=== PATIENT | male | born 1980 | race African-American/Black ===

== ENCOUNTER 2021-03-11 17:07 | Emergency (ER) | payer MEDICAID, SELFPAY ==
[2021-03-11 17:28] VITALS: BP 127/87; PULSE 72; RESP 12; TEMP 36.7; O2SAT 98
[2021-03-11 17:46] VITALS: PULSE 72; RESP 12
--- NOTE | 2021-03-11 17:48 | ED.GENADULT ---
HPI - General Adult General Chief complaint: Overdose Stated complaint: Fentanyl Injestion to Avoid Police Time Seen by Provider: 03/11/21 17:33 Source: patient, EMS and RN notes reviewed Mode of arrival: EMS Limitations: no limitations History of Present Illness HPI narrative: Patient is a 40-year-old -[place] male brought to the emergency room by ambulance because of fentanyl overdose. Patient normally takes 3 to 4 tablets of fentanyl a day, patient took 7 tablets of fentanyl of unknown dose before got arrested by the police.. 2 hours ago. 1 hour later patient felt dizzy then released from custody to the emergency room. Currently patient is awake, alert and oriented x4, denies any nausea, vomiting, headache, abdominal pain, chest pain, shortness of breath, vision abnormalities, dizziness, lightheadedness or any other symptoms. Patient feels normal without any symptoms and would like to go home AGAINST MEDICAL ADVICE. Related Data Allergies Allergy/AdvReac Type Severity Reaction Status Date / Time No Known Allergies Allergy Verified 03/11/21 17:52 Review of Systems Review of Systems: CONSTITUTIONAL: Denies fever, chills, or sweats. EYES: Denies visual changes, redness, or discharge. ENT: Denies rhinorrhea, congestion, sore throat, or otalgia. CARDIOVASCULAR: Denies chest pain, palpitations, or edema. RESPIRATORY: Denies cough or dyspnea. GASTROINTESTINAL: Denies abdominal pain, nausea, vomiting, or diarrhea. GENITOURINARY: Denies dysuria or hematuria. SKIN: Denies rash or itching. MUSCULOSKELETAL: Denies back pain, joint pain, or myalgia. NEUROLOGIC: Denies headache, numbness, or weakness. PSYCHIATRIC: Denies anxiety or depression. Exam Narrative: General appearance: Well-developed, well-nourished Skin: Normal color Head: Normocephalic, nontraumatic Eyes: Clear conjunctiva ENT: Oropharynx normal, ears normal, nose normal Neck: Supple, nontender Chest and respiratory: Airway patent, no respiratory distress, no accessory muscle use Heart: Regular rate/rhythm Abdomen: Soft, nontender, no organomegaly, quiet bowel sounds Vascular: Normal peripheral pulses, normal capillary refill. Musculoskeletal: Normal range of motion, nontender back Neurologic: Alert and oriented ?3, CLINICAL ADMINISTRATIVE COORDINATOR is normal as tested, no gross motor deficit Course Course Emergency Course: Improved Vital Signs Vital signs: Vital Signs Temperature 36.7 C 03/11/21 17:28 Pulse Rate 72 03/11/21 17:28 Respiratory Rate 12 03/11/21 17:28 Blood Pressure 127/87 03/11/21 17:28 Pulse Oximetry 98 03/11/21 17:28 Temperature 36.7 C 03/11/21 17:28 Pulse Rate 72 03/11/21 17:46 Respiratory Rate 12 03/11/21 17:28 Blood Pressure 127/87 03/11/21 17:28 Pulse Oximetry 98 03/11/21 17:28 Medical Decision Making MDM Narrative Medical decision making narrative: Patient took 7 pills of fentanyl, of unknown dose, was concerned about to get caught by the police with fentanyl in his pocket. Currently patient is asymptomatic, would like to go home patient left AGAINST MEDICAL ADVICE.. Patient was able to get out of bed and walk in the emergency room without any quality control assistant or dizziness. Differential Diagnosis Differential Diagnosis: Fentanyl overdose Vital Signs Vital Signs: Vital Signs Temperature 36.7 C 03/11/21 17:28 Pulse Rate 72 03/11/21 17:28 Respiratory Rate 12 03/11/21 17:28 Blood Pressure 127/87 03/11/21 17:28 Pulse Oximetry 98 03/11/21 17:28 Temperature 36.7 C 03/11/21 17:28 Pulse Rate 72 03/11/21 17:46 Respiratory Rate 12 03/11/21 17:28 Blood Pressure 127/87 03/11/21 17:28 Pulse Oximetry 98 03/11/21 17:28 C
[2021-03-11 17:49] VITALS: BP 127/80; PULSE 75; RESP 12; O2SAT 100
[2021-03-11 17:50] VITALS: O2SAT 100
--- NOTE | 2021-03-11 17:51 | PC.NURSE ---
pt refusing tx. wants to leave. ed phys aware. ed phys wants pt to have narcan prior to leaving. pt refusing narcan
[2021-03-11 18:26] VITALS: BP 121/73; PULSE 74; RESP 12; O2SAT 99
== END 2021-03-11 18:27 | disposition left against medical advice (07) ==
PROVIDERS: Emergency Provider Emergency Medicine
DX: T40.411A Poisoning by fentanyl or fentanyl analogs, accidental (unintentional), initial encounter (principal)
CPT/HCPCS: 99281

== ENCOUNTER 2022-10-11 16:10 | Emergency (ER) | payer MEDICAID, SELFPAY ==
[2022-10-11] VITALS (7 sets, daily range): BP systolic 122–124; BP diastolic 70–94; PULSE 53–91; RESP 9–14; TEMP 36.5–36.7; O2SAT 99–100
--- NOTE | ~2022-10-11 | XR_ITS ---
EXAMINATION: XR chest 1V portable Exam Date/Time: 10/11/2022 17:34 CDT HISTORY: wheezing Comparison: None. RESULT: Lines, tubes, and devices: None. Lungs and pleura: Patient is rotated towards the right. Slightly low volumes with crowding. Streaky b ibasilar atelectasis. Cardiomediastinal silhouette: Stable. Other: No acute osseous or upper abdominal finding. IMPRESSION: No acute cardiopulmonary process. Reviewed, dictated and finalized at location K.
[2022-10-11] MEDS: ONDANSETRON HCL ODT 4 MG TABLET PO (17:35)
[2022-10-11] MEDS: IPRATROPIUM BR 0.02% INH SOLN 0.5 MG/2.5 ML VIAL INHALATION (17:38)
[2022-10-11] MEDS: ALBUTEROL SULFATE NEB 2.5 MG/3 ML INH INHALATION (17:38)
--- NOTE | 2022-10-11 19:46 | ED.GENADULT ---
HPI - General Adult General Chief complaint: Unspecified Stated complaint: nausea Time Seen by Provider: 10/11/22 17:14 History of Present Illness HPI narrative: Patient is a 42-year-old male who presents ER from police custody with nausea. Patient was found sleeping in his car. He reports he used 3-4 button some fentanyl. He thought they were weaker than his typical 1 but no day habit so he took multiple. There is no attempt to end his own life. He has had no hypoxia. Related Data Allergies Allergy/AdvReac Type Severity Reaction Status Date / Time No Known Allergies Allergy Verified 03/11/21 17:52 Review of Systems Review of Systems: All systems reviewed & are unremarkable except as noted in HPI and below Constitutional: Constitutional: Denies chills and Denies fever(s) Cardiovascular: Cardiovascular: Denies chest pain and Denies radiating jaw, neck or arm pain Respiratory: Respiratory: Denies cough, Denies dyspnea and Reports wheezing Gastrointestinal: Gastrointestinal: Denies abdominal pain, Denies diarrhea, Reports nausea and Denies vomiting PMF Past Medical History Medical History (Updated 10/11/22 @ 20:28 by Booker Strauss MD) Healthy adult male Surgical History Surgical History (Updated 10/11/22 @ 20:28 by Booker Strauss MD) No history of previous surgery Exam Narrative: GENERAL: Well-appearing, well-nourished, and in no acute distress. HEAD: Normocephalic, atraumatic. EYES: PERRL and EOMI. ENT: Mucous membranes moist. CHEST: Scattered expiratory wheezing.. No respiratory distress. HEART: Regular rate and rhythm. Normal peripheral pulses. ABDOMEN: Soft, nontender, nondistended. EXTREMITIES: Normal range of motion. No edema. SKIN: Warm, dry, no rash. NEURO: Alert and oriented x3. PSYCH: Normal mood and affect. Course Course Emergency Course: Patient awake alert and oriented x3. He is a bit sleepy but when he walks in the room he wakes up immediately and converses appropriately. He has been able to eat and drink. He reports that his girlfriend works at 10 PM and he is ready to leave. She is on her way to pick him up. Vital Signs Vital signs: Vital Signs Temperature 97.7 F 10/11/22 16:12 Pulse Rate 91 10/11/22 16:12 Respiratory Rate 14 10/11/22 16:12 Blood Pressure 123/70 10/11/22 16:12 Pulse Oximetry 99 10/11/22 16:12 Oxygen Delivery Room Air 10/11/22 16:12 Temperature 97.7 F 10/11/22 16:12 Pulse Rate 65 10/11/22 17:49 Respiratory Rate 9 L 10/11/22 17:49 Blood Pressure 122/94 H 10/11/22 17:18 Pulse Oximetry 100 10/11/22 17:21 Oxygen Delivery Room Air 10/11/22 17:18 Medical Decision Making Vital Signs Vital Signs: Vital Signs Temperature 97.7 F 10/11/22 16:12 Pulse Rate 91 10/11/22 16:12 Respiratory Rate 14 10/11/22 16:12 Blood Pressure 123/70 10/11/22 16:12 Pulse Oximetry 99 10/11/22 16:12 Oxygen Delivery Room Air 10/11/22 16:12 Temperature 97.7 F 10/11/22 16:12 Pulse Rate 65 10/11/22 17:49 Respiratory Rate 9 L 10/11/22 17:49 Blood Pressure 122/94 H 10/11/22 17:18 Pulse Oximetry 100 10/11/22 17:21 Oxygen Delivery Room Air 10/11/22 17:18 Imaging Data Radiologist's impression: ITS Impressions Chest X-Ray 10/11/22 17:46 IMPRESSION: No acute cardiopulmonary process. Discharge Plan Discharge Clinical Impression: Opiate abuse, episodic, Wheezing Patient Disposition: Home, Self-Care Condition: Stable Instructions: Opioid Safety (ED), Wheezing (ED) Additional Instructions: Discontinue use of narcotics, they put your life at risk. Return the ER if you have difficulty breathing, you have fever over 100.4 ?F or you have additional concerns. If you do continue to use fentanyl is recommended you have Narcan with you, if you overdose and someone is with you they may be able to save your life. Prescriptions: New naloxone [Narcan
== END 2022-10-11 20:35 | disposition home or self-care (01) ==
PROVIDERS: Emergency Provider Emergency Medicine
DX: F11.10 Opioid abuse, uncomplicated (principal); R06.2 Wheezing
CPT/HCPCS: 71045; 94640; 99283; A9270